=== PATIENT | female | born 1980 ===

== ENCOUNTER 2019-01-17 10:46 | Outpatient (CLI) | payer OTHER ==
[~2019-01-17] VITALS: Ht 165.1 cm; Wt 70.3 kg
== END 2019-01-17 11:00 | disposition home or self-care (01) ==
LOC: OFIC 805 10:46
DX: J38.4 Edema of larynx (principal); K21.0 Gastro-esophageal reflux disease with esophagitis; K21.9 Gastro-esophageal reflux disease without esophagitis; R49.0 Dysphonia